=== PATIENT | male | born 1940 | race Caucasian/White ===

== ENCOUNTER → 2016-12-23 | Outpatient (CLI) | payer MEDICARE, BC ==
[2016-12-23 10:38] LABS: HEMOGLOBIN 13.3 gm/dl (14.0-17.5); RED BLOOD COUNT 4.31 M/UL (4.20-5.50); WHITE BLOOD COUNT 5.5 K/UL (4.5-11.0)
[2016-12-23 10:57] LABS: BUN/CREATININE RATIO 13 (0-10)
== END ==
PROVIDERS: Emergency Medicine
DX: E78.2 Mixed hyperlipidemia (principal); I10 Essential (primary) hypertension; I48.2 Chronic atrial fibrillation; M54.5 Low back pain
CPT/HCPCS: 36415; 80053; 80061; 85027

== ENCOUNTER 2020-12-25 13:50 | Emergency (ER) | payer MEDICARE, BC ==
[~2020-12-25 13:50] MED LIST: ALFUZOSIN HCL E10 MG PO; ANTIVERT 25MG T25 MG PO; BREO ELLIPTA 21 EACH INH; COZAAR 50MG TAB50 MG PO; CREON DR 36,001 EACH PO; ELIQUIS 5 MG TAB5 MG PO; MONTELUKAST SOD10 MG PO; NASONEX17 GM; SIMVASTATIN10 MG PO; SOTALOL80 MG PO; VENTOLIN HFA 66.7 GM INH
[2020-12-25] MEDS ORDERED: ENDOCET 5-3251 EACH PO (17:04)
== END 2020-12-25 17:27 | disposition home or self-care (01) ==
LOC: ER1 13:50
DX: M51.36 Other intervertebral disc degeneration, lumbar region (principal); I11.9 Hypertensive heart disease without heart failure
CPT/HCPCS: 72131; 99283

== ENCOUNTER 2021-02-03 12:31 | Emergency (ER) | payer MEDICARE, BC ==
[~2021-02-03 12:31] MED LIST changes: +ENDOCET 5-3251 EACH PO
[2021-02-03] MEDS ORDERED: BACTROBAN OINT22 GM EXT (13:05)
[2021-02-03] MEDS ORDERED: CLEOCIN HCL300 MG PO (13:05)
== END 2021-02-03 13:11 | disposition home or self-care (01) ==
LOC: ER1 12:31
DX: L02.212 Cutaneous abscess of back [any part, except buttock and flank] (principal); I11.9 Hypertensive heart disease without heart failure; J44.9 Chronic obstructive pulmonary disease, unspecified
CPT/HCPCS: 87070; 87205; 99283

== ENCOUNTER → 2021-02-28 | Outpatient (CLI) | payer MEDICARE, BC ==
[~2021-02-28] MED LIST changes: +BACTROBAN OINT22 GM EXT; +CLEOCIN HCL300 MG PO
[2021-02-28 11:24] LABS: HEMOGLOBIN 11.4 gm/dl (14.0-17.5); RED BLOOD COUNT 3.43 M/UL (4.20-5.50); WHITE BLOOD COUNT 4.1 K/UL (4.5-11.0)
[2021-02-28 11:49] LABS: BUN/CREATININE RATIO 13 (0-10)
[2021-02-28 15:40] LABS: ADENOVIRUS F 40/41 Not Detected (Negative); ASTROVIRUS Not Detected (Negative); CAMPYLOBACTER Not Detected (Negative); CRYPTOSPORIDIUM Not Detected (Negative); E.COLI 0157 Not Detected (Negative); ENTAMOEBA HISTOLYTICA Not Detected (Negative); ENTEROAGGREGATIVE E.COLI (EAEC Not Detected (Negative); ENTEROPATHOGENIC E.COLI (EPEC) Not Detected (Negative); ENTEROTOXIGENIC E.COLI (ETEC) Not Detected (Negative); GIARDIA LAMBLIA Not Detected (Negative); NOROVIRUS GI/GII Not Detected (Negative); PLESIOMONAS SHIGELLOIDES Not Detected (Negative); ROTOVIRUS A Not Detected (Negative); SALMONELLA Not Detected (Negative); SAPOVIRUS Not Detected (Negative); SHIG/ENTEROINVAS.ECOLI (EIEC) Not Detected (Negative); SHIGA-LIK TOX.PRO.E.COLI (STEC Not Detected (Negative); VIBRIO Not Detected (Negative); VIBRIO CHOLERAE Not Detected (Negative); YERSINIA ENTEROCOLITICA Not Detected (Negative)
[2021-03-01 10:18] LABS: CLOSTRIDIUM DIFFICILE TOX A/B DETECTED (Negative)
== END ==
LOC: LAB 10:05
PROVIDERS: Emergency Medicine
DX: R19.7 Diarrhea, unspecified (principal); E78.5 Hyperlipidemia, unspecified; I10 Essential (primary) hypertension; K86.1 Other chronic pancreatitis; R53.83 Other fatigue; R10.84 Generalized abdominal pain; T36.95XA Adverse effect of unspecified systemic antibiotic, initial encounter
CPT/HCPCS: 36415; 80053; 85027; 87507

== ENCOUNTER → 2021-05-08 | Outpatient (CLI) | payer MEDICARE, BC ==
[2021-05-08 12:14] LABS: ADENOVIRUS F 40/41 Not Detected (Negative); ASTROVIRUS Not Detected (Negative); CAMPYLOBACTER Not Detected (Negative); CRYPTOSPORIDIUM Not Detected (Negative); E.COLI 0157 Not Detected (Negative); ENTAMOEBA HISTOLYTICA Not Detected (Negative); ENTEROAGGREGATIVE E.COLI (EAEC Not Detected (Negative); ENTEROPATHOGENIC E.COLI (EPEC) Not Detected (Negative); ENTEROTOXIGENIC E.COLI (ETEC) Not Detected (Negative); GIARDIA LAMBLIA Not Detected (Negative); NOROVIRUS GI/GII Not Detected (Negative); PLESIOMONAS SHIGELLOIDES Not Detected (Negative); ROTOVIRUS A Not Detected (Negative); SALMONELLA Not Detected (Negative); SAPOVIRUS Not Detected (Negative); SHIG/ENTEROINVAS.ECOLI (EIEC) Not Detected (Negative); SHIGA-LIK TOX.PRO.E.COLI (STEC Not Detected (Negative); VIBRIO Not Detected (Negative); VIBRIO CHOLERAE Not Detected (Negative); YERSINIA ENTEROCOLITICA Not Detected (Negative)
[2021-05-08 16:52] LABS: CLOSTRIDIUM DIFFICILE TOX A/B DETECTED (Negative)
== END ==
LOC: LAB 11:55
PROVIDERS: Emergency Medicine
DX: K52.1 Toxic gastroenteritis and colitis (principal); T36.95XA Adverse effect of unspecified systemic antibiotic, initial encounter; R10.84 Generalized abdominal pain; R19.7 Diarrhea, unspecified
CPT/HCPCS: 87324; 87449; 87507

== ENCOUNTER → 2021-05-16 | Outpatient (CLI) | payer MEDICARE, BC ==
[2021-05-16 09:06] LABS: HEMOGLOBIN 11.8 gm/dl (14.0-17.5); RED BLOOD COUNT 3.76 M/UL (4.20-5.50); WHITE BLOOD COUNT 4.1 K/UL (4.5-11.0)
[2021-05-16 09:37] LABS: BUN/CREATININE RATIO 18 (0-10)
== END ==
LOC: LAB 08:37
PROVIDERS: Emergency Medicine
DX: I10 Essential (primary) hypertension (principal); E78.2 Mixed hyperlipidemia
CPT/HCPCS: 36415; 80053; 85025

== ENCOUNTER → 2021-06-14 | Outpatient (CLI) | payer MEDICARE, BC | LOC: HEART 5 06-13 13:00 | DX: I50.42 Chronic combined systolic (congestive) and diastolic (congestive) heart failure (principal); R42 Dizziness and giddiness; R06.02 Shortness of breath; I08.1 Rheumatic disorders of both mitral and tricuspid valves; I27.20 Pulmonary hypertension, unspecified; Z95.0 Presence of cardiac pacemaker | CPT/HCPCS: 93306 ==

== ENCOUNTER → 2021-06-22 | Outpatient (CLI) | payer MEDICARE, BC | LOC: LAB 08:46 | PROVIDERS: Internal Medicine Cardiovascular Disease | DX: R06.02 Shortness of breath (principal) | CPT/HCPCS: 36415; 80048; 83880 ==

== ENCOUNTER → 2021-07-20 | Outpatient (CLI) | payer MEDICARE, BC ==
[2021-07-20 09:28] LABS: HEMOGLOBIN 11.2 gm/dl (14.0-17.5); RED BLOOD COUNT 3.41 M/UL (4.20-5.50)
== END ==
LOC: LAB 08:54
PROVIDERS: Physician Assistant
DX: A04.72 Enterocolitis due to Clostridium difficile, not specified as recurrent (principal); R19.7 Diarrhea, unspecified; R10.13 Epigastric pain; D64.9 Anemia, unspecified
CPT/HCPCS: 36415; 80053; 85025

== ENCOUNTER → 2021-07-31 | Outpatient (CLI) | payer MEDICARE, BC | LOC: KOH-I 13:01 | DX: M79.672 Pain in left foot (principal); M79.671 Pain in right foot; M19.071 Primary osteoarthritis, right ankle and foot | CPT/HCPCS: 73630 ==

== ENCOUNTER → 2021-08-20 | Outpatient (CLI) | payer MEDICARE, BC | LOC: LAB 09:17 | DX: R42 Dizziness and giddiness (principal) | CPT/HCPCS: 81001 ==

== ENCOUNTER → 2021-08-21 | Outpatient (CLI) | payer MEDICARE, BC ==
[2021-08-21 09:44] LABS: HEMOGLOBIN 11.3 gm/dl (14.0-17.5); RED BLOOD COUNT 3.45 M/UL (4.20-5.50); WHITE BLOOD COUNT 5.2 K/UL (4.5-11.0)
== END ==
LOC: LAB 08:47
PROVIDERS: Physician Assistant
DX: D64.9 Anemia, unspecified (principal); R10.13 Epigastric pain
CPT/HCPCS: 36415; 82728; 83540; 83550; 85025

== ENCOUNTER → 2021-10-18 | Outpatient (CLI) | payer MEDICARE, BC ==
[2021-10-18 09:12] LABS: HEMOGLOBIN 11.2 gm/dl (14.0-17.5); RED BLOOD COUNT 3.41 M/UL (4.20-5.50); WHITE BLOOD COUNT 4.7 K/UL (4.5-11.0)
[2021-10-19 07:10] LABS: A/G RATIO 1.7 (1.2-2.2); ALKALINE PHOSPHATASE, S 59 IU/L (44-121); ALT (SGPT) 12 IU/L (0-44); AST (SGOT) 12 IU/L (0-40); BILIRUBIN, TOTAL 1.4 mg/dL (0.0-1.2); BUN 19 mg/dL (8-27); BUN/CREATININE RATIO 15 (10-24); CALCIUM, SERUM 9.2 mg/dL (8.6-10.2); CARBON DIOXIDE, TOTAL 24 mmol/L (20-29); CHLORIDE, SERUM 106 mmol/L (96-106); CREATININE, SERUM 1.23 mg/dL (0.76-1.27); EGFR IF AFRICN AM 62 (>59); EGFR IF NONAFRICN AM 54 (>59); GLOBULIN, TOTAL 2.4 g/dL (1.5-4.5); GLUCOSE, SERUM 103 mg/dL (65-99); POTASSIUM, SERUM 4.5 mmol/L (3.5-5.2); PROTEIN, TOTAL, SERUM 6.5 g/dL (6.0-8.5); SODIUM, SERUM 140 mmol/L (134-144)
[2021-10-19 08:13] LABS: FOLATE (FOLIC ACID), SERUM 13.1 ng/mL (>3.0); IRON BIND.CAP.(TIBC) 278 ug/dL (250-450); IRON SATURATION 37 % (15-55); IRON, SERUM 102 ug/dL (38-169); UIBC 176 ug/dL (111-343); VITAMIN D, 25-HYDROXY 43.2 ng/mL (30.0-100.0)
[2021-10-21 10:10] LABS: F001-IGE EGG WHITE 0.11 kU/L (Class 0/I); F002-IGE MILK <0.10 kU/L (Class 0); F003-IGE CODFISH <0.10 kU/L (Class 0); F004-IGE WHEAT <0.10 kU/L (Class 0); F005-IGE RYE <0.10 kU/L (Class 0); F006-IGE BARLEY <0.10 kU/L (Class 0); F007-IGE OAT <0.10 kU/L (Class 0); F009-IGE RICE <0.10 kU/L (Class 0); F010-IGE SESAME SEED <0.10 kU/L (Class 0); F012-IGE GREEN PEA <0.10 kU/L (Class 0); F013-IGE PEANUT <0.10 kU/L (Class 0); F014-IGE SOYBEAN <0.10 kU/L (Class 0); F015-IGE WHITE BEAN <0.10 kU/L (Class 0); F017-IGE HAZELNUT (FILBERT) <0.10 kU/L (Class 0); F020-IGE ALMOND <0.10 kU/L (Class 0); F023-IGE CRAB <0.10 kU/L (Class 0); F024-IGE SHRIMP <0.10 kU/L (Class 0); F025-IGE TOMATO <0.10 kU/L (Class 0); F026-IGE PORK <0.10 kU/L (Class 0); F027-IGE BEEF 0.12 kU/L (Class 0/I); F031-IGE CARROT <0.10 kU/L (Class 0); F033-IGE ORANGE <0.10 kU/L (Class 0); F035-IGE POTATO, WHITE <0.10 kU/L (Class 0); F040-IGE TUNA <0.10 kU/L (Class 0); F041-IGE SALMON <0.10 kU/L (Class 0); F045-IGE YEAST <0.10 kU/L (Class 0); F047-IGE GARLIC <0.10 kU/L (Class 0); F083-IGE CHICKEN <0.10 kU/L (Class 0); F089-IGE MUSTARD <0.10 kU/L (Class 0); F093-IGE CHOCOLATE/CACAO <0.10 kU/L (Class 0); F202-IGE CASHEW NUT <0.10 kU/L (Class 0); F215-IGE LETTUCE <0.10 kU/L (Class 0); F256-IGE WALNUT <0.10 kU/L (Class 0); F263-IGE GREEN PEPPERCORN <0.10 kU/L (Class 0); F338-IGE SCALLOP <0.10 kU/L (Class 0)
== END ==
LOC: LAB 08:30
PROVIDERS: Physician Assistant
DX: T78.1XXA Other adverse food reactions, not elsewhere classified, initial encounter (principal); D53.9 Nutritional anemia, unspecified; D75.89 Other specified diseases of blood and blood-forming organs; R53.82 Chronic fatigue, unspecified; E55.9 Vitamin D deficiency, unspecified
CPT/HCPCS: 36415; 80053; 82607; 82746; 83540; 83550; 84439; 84443; 85025

== ENCOUNTER → 2022-03-07 | Outpatient (CLI) | payer MEDICARE, BC ==
[2022-03-07 11:04] LABS: HEMOGLOBIN 11.1 gm/dl (14.0-17.5); RED BLOOD COUNT 3.37 M/UL (4.20-5.50); WHITE BLOOD COUNT 4.8 K/UL (4.5-11.0)
[2022-03-09 13:09] LABS: CHOLESTEROL, TOTAL 137 mg/dL (100-199); HDL-C 54 mg/dL (>39); HDL-P (TOTAL) 26.1 umol/L (>=30.5); LDL SIZE 21.4 nm (>20.5); LDL SIZE 21.4 nm (>=20.8); LDL-C 68 mg/dL (0-99); LDL-P 697 nmol/L (<1000); LP-IR SCORE <25 (<=45); SMALL LDL-P <90 nmol/L (<=527); TRIGLYCERIDES 78 mg/dL (0-149); VLDL SIZE 47.7 nm (<=46.6)
== END ==
LOC: LAB 10:07
PROVIDERS: Emergency Medicine
DX: I10 Essential (primary) hypertension (principal); E78.2 Mixed hyperlipidemia; I48.21 Permanent atrial fibrillation; N40.0 Benign prostatic hyperplasia without lower urinary tract symptoms; R53.83 Other fatigue
CPT/HCPCS: 36415; 80053; 80061; 83704; 84443; 84550; 85025

== ENCOUNTER → 2022-04-11 | Outpatient (CLI) | payer MEDICARE, BC | LOC: US 10:57 | DX: R20.9 Unspecified disturbances of skin sensation (principal); R53.83 Other fatigue; I67.89 Other cerebrovascular disease; I65.23 Occlusion and stenosis of bilateral carotid arteries | CPT/HCPCS: 93880; 93925 ==

== ENCOUNTER → 2022-04-17 | Outpatient (CLI) | payer MEDICARE, BC | LOC: CT 14:30 | DX: R42 Dizziness and giddiness (principal); R51.9 Headache, unspecified; R06.02 Shortness of breath; R53.83 Other fatigue | CPT/HCPCS: 70450 ==